=== PATIENT | male | born 1945 | race Caucasian/White ===

== ENCOUNTER 2021-10-23 17:20 | Outpatient (REF) | payer MEDICARE, SELFPAY ==
--- NOTE | ~2021-10-23 | CT_ITS ---
EXAMINATION: CT CHEST WITHOUT CONTRAST CLINICAL INFORMATION: Interstitial lung disease. COMPARISON: Previous CT of the chest February 2021. TECHNIQUE: Multidetector volumetric CT imaging of the chest was done. Axial MIP volume rendering provided. Sagittal and coronal reformatted images were obtained. This CT examination was performed using dose optimization techniques as appropriate, variously including the following: *Automated exposure control *Adjustment of mA and/or kV according to patient size (this includes techniques or standardized protocols for targeted exams where dose is matched to indication/reason for exam; i.e. extremities or head) *Use of iterative reconstruction technique DLP: 198 mGy-cm FINDINGS: LUNGS: There is mild peripheral interstitial lung disease with increased peripheral reticulation and parenchymal attenuation. This is greatest at the lung bases and paravertebral bilateral lower lobes. No traction bronchiolectasis or honeycombing is seen. There is mild biapical pleural and parenchymal scarring. There is a 2 mm right upper lobe nodule axial image 83 series 10. There is a 2 mm peripheral or subpleural superior segment left lower lobe nodule axial image 83 series 10. There is a 2 mm right upper lobe nodule axial image 84 series 10. There is a 3 mm peripheral or subpleural right upper lobe nodule axial image 102 series 10. There is a 3 mm central or peribronchial left upper lobe nodule axial image 109 series 10. There is a 4 mm peripheral or subpleural left lower lobe nodule axial image 110 series 10. There is a 3 mm superior segment left lower lobe nodule axial image 114 series 10. There is a 4 mm right lower lobe nodule axial image 114 series 10. There is a 4 mm right lower lobe nodule axial image 114 series 10. There is a 2 mm peripheral or subpleural right lower lobe nodule adjacent to the fissure axial image 118 series 10. There is a 3 mm right lower lobe nodule axial image 123 series 10. There is a 5 mm right lower lobe nodule axial image 128 series 10. These are stable from previous exam. MEDIASTINUM: The visualized thyroid gland is unremarkable. There are no enlarged hilar or mediastinal lymph nodes. The heart is enlarged. There is a left subclavian dual chamber pacemaker. There is mild coronary artery and aortic valve calcification. The thoracic aorta is upper normal in size. There is no pericardial effusion. PLEURA: There is no pleural effusion. No pleural mass or thickening. AXILLA: There are small bilateral axillary lymph nodes, left greater than right. UPPER ABDOMEN: There are 2 cysts in the left lobe of the liver, largest measuring 3 cm. The gallbladder has been removed. OSSEOUS STRUCTURES: There are degenerative changes of the spine. CT/CT chest wo con IMPRESSION: Mild peripheral interstitial lung disease, greatest at the lung bases. Multiple bilateral pulmonary nodules, largest measuring 5 mm in the right lower lobe. These are stable from February 2021 exam. Coronary artery and aortic valve calcification. Fleischner guidelines were followed.
== END 2021-10-23 17:21 | disposition home or self-care (01) ==
LOC: HO.CT 17:20
PROVIDERS: Visit Provider Internal Medicine
DX: J84.9 Interstitial pulmonary disease, unspecified (principal)
CPT/HCPCS: 71250